=== PATIENT | male | born 1980 | race Caucasian/White ===

== ENCOUNTER 2024-10-13 19:20 | Emergency (ER) | payer BC, SELFPAY ==
[2024-10-13 19:25] VITALS: BP 164/93
--- NOTE | 2024-10-13 21:31 | ED.GENMED ---
History of Present Illness
General
Chief Complaint: DVT/Possible Blood Clot
Time Seen by Provider: 10/13/24 20:16
History of Present Illness
History of Present Illness:
TIME OF INITIAL ENCOUNTER: 8:30 PM
HPI: The patient presents due to right calf pain. He has been playing basketball a lot including 2 days ago and since then developed right calf pain. He was concerned because he has a history of DVT. When he had the DVT which was more extensive
to the right lower extremity, it was in the setting of a Achilles tendon rupture and immobilization. He was on Xarelto at that time. He never had a PE. He does not have any shortness of breath or chest pain.
EXAM:
GENERAL: Well appearing in no distress
HEENT: Moist oral mucosa
CARDIOVASCULAR: No murmurs, normal heart rate, regular rhythm, No chest wall tenderness
PULMONARY: No respiratory distress, breath sounds are clear and equal
ABDOMEN: Soft with no peritoneal signs, no tenderness
NEUROLOGIC: Excellent strength all extremities, no coordination deficits
PSYCHIATRIC: Appropriate mental status, normal insight and judgement
EXTREMITIES: There is minimal edema to the right lower extremity distally, there is point tenderness to the posterolateral aspect of the right calf
SKIN: No rash, no lesions
NUMBER AND COMPLEXITY OF PROBLEMS ADDRESSED AT THE ENCOUNTER
� Chronic conditions affecting care: Has had DVT in the past, high blood pressure
� Acute Exacerbation and/or Progression of Chronic Illness: This is an acute problem
� Differential Diagnosis includes: Muscle strain, superficial venous thrombosis, thrombophlebitis, deep vein thrombosis, cellulitis not evidence on physical examination
AMOUNT AND/OR COMPLEXITY OF DATA TO BE REVIEWED AND ANALYZED
� I performed an independent evaluation of and my interpretation is:
EKG:
CT:
X-rays:
Laboratory Studies: Hemoglobin normal, renal function is normal
Other: Ultrasound imaging shows evidence of occlusive peroneal vein DVT
� Review of other/old records: I reviewed records, the patient had extensive occlusive thrombosis in the right lower extremity in 2018
� Clinical information was obtained by an independent historian: I spoke to at bedside
� Prescriptions/Medications Considered but not given:
� Further testing considered but not performed:
RISK OF COMPLICATIONS AND/OR MORBIDITY OR MORTALITY OF PATIENT MANAGEMENT
� Social determinants of health affecting care: Lives at home
� Discussion with other providers:
� Escalation of care including admission/observation vs risk of discharge considered: Patient has symptomatic occlusive peroneal vein DVT to the right lower extremity. Will resume anticoagulation. We also discussed risks of
bleeding while on anticoagulation�recommended to hold off on playing vigorous sports such as basketball at least over the next week and follow-up with hematology.
ANY OTHER UPDATES:
10:15 PM: I reassessed patient. The patient is very well-appearing with no shortness of breath. Recommend that he follows up with hematology as this is an unprovoked second DVT.
Past History
Past History
ED Past Medical History: HTN, Other (Hyperlipidemia) and Other (Gout, dvt)
Social History
Tobacco: Non-smoker
Personal:
Living: with family
Employment: Employed (Works from home)
Phy Exam
Physical Exam
Physical Exam:
See HPI
Course
Orders/Labs/Results
Orders:
Orders
10/13/24 19:29
Periph Venous Lwr Ext Rt US [US Periph Venous LOWER Ext RT] Urgent
Comment: hx dvt 6 years ago
Reason For Exam: right calf pain and swelling
10/13/24 21:33
CMP [Comprehensive Metabolic Panel] Urgent
Complete Blood Count/With Diff Urgent
10/13/24 21:35
Apixaban [Eliquis] 10 mg PO NOW STA
Abnormal Lab Results
10/13/24
21:33
RBC 4.43 L 10^6/uL
(4.70-6.10)
MCH 31.8 H pg
(27.0-31.0)
Abs Immat Gran (auto) 0.1 H 10^3/uL
(0-0.05)
Absolute Monos (auto) 0.8 H 10^3/uL
(0.1-0.6)
Immature Gran % 0.8 H %
(0-0.5)
BUN 22 H mg/dl
(9-20)
Glucose 129 H mg/dl
(70-99)
ALT 53 H U/L
(0-50)
10/13/24 21:33
10/13/24 21:33
Vital Signs
Initial and Last Documented VS:
Initial Vital Signs
Temp Pulse Resp BP Pulse Ox
36.6 C 56 16 164/93 99
10/13/24 19:25 10/13/24 19:25 10/13/24 19:25 10/13/24 19:25 10/13/24 19:25
Last Documented Vital Signs
Temp Pulse Resp BP Pulse Ox
36.6 C 56 16 164/93 99
10/13/24 19:25 10/13/24 19:25 10/13/24 19:25 10/13/24 19:25 10/13/24 19:25
*Critical Care Note
Total Time (30-74mins, 75-104mins- exclusive of procedures): Not Applicable
ED Attending Note
-
Portions of this chart may have been created with voice recognition software.� Occasional wrong word or��sound alike� substitutions may have occurred due to the inherent limitations of voice recognition software.
Discharge Plan
Departure
Patient Disposition: Home (Routine Discharge)
Date of Disposition: 10/13/24
Time of Disposition: 22:14
Patient with high blood pressure during this ER visit?: Yes
Discharge Problem:
Acute deep vein thrombosis of peroneal vein
Instructions: Deep Vein Thrombosis (Blood Clots in the Legs) (DC)
Prescriptions:
New
Eliquis 5 mg tablet
5 mg PO BID Qty: 74 0RF
Rx Instructions:
FOR FIRST WEEK, TAKE TWO TABS TWICE DAILY
No Action
nebivolol 10 MG tablet
10 mg PO DAILY
fenofibrate 40 MG tablet
40 mg PO DAILY
Referrals:
Iveth Bowman MD [Active] - Follow up in 10 days
UNKNOWN - PT DOES,NOT KNOW [Family Provider] -
Activity Restrictions/Additional Instructions:
For the first week take two 5 mg Eliquis tablets twice daily, after the first week take one 5 mg Eliquis tablet twice daily. Basic blood work including hemoglobin and renal function are normal. I have given you the contact information for local
clinical quality rn to follow-up with.
Interventions
Interventions:
*Risk Screen - Suicide Last Done: 10/13/24 21:39
*General Assessment Last Done: 10/13/24 19:25
*Neglect/Abuse Screening Last Done: 10/13/24 21:39
ED- Fall Risk Assessment Last Done: 10/13/24 21:39
*ED COVID-19 Vaccine History Last Done: 10/13/24 19:25
ED- Pulmonary Assessment Last Done: 10/13/24 21:39
Discharge Date and Time
Print Language: THAI
[2024-10-13 21:33] VITALS: BMI 37.7
[2024-10-13 21:46] LABS: % Basophils 0.6 % (0-2); % Eosinophils 3.6 % (0-6); % Immature Granulocytes 0.8 % (0-0.5); % Monocytes 8.7 % (1.7-9.3); % Neutrophils 55.3 % (42.2-75.2); Absolute Basophils 0.1 10^3/uL (0-0.2); Absolute Eosinophils 0.3 10^3/uL (0-0.7); Absolute Immature Granulocytes 0.1 10^3/uL (0-0.05); Absolute Lymphocytes 2.8 10^3/uL (1.2-3.4); Absolute Monocytes 0.8 10^3/uL (0.1-0.6); Absolute Neutrophils 4.9 10^3/uL (1.4-6.5); Hematocrit 39.8 % (39.0-52.0); Hemoglobin 14.1 g/dL (13.0-18.0); Mean Corp Hgb Conc. 35.4 g/dL (33.0-37.0); Mean Corpuscular Hgb 31.8 pg (27.0-31.0); Mean Corpuscular Volume 89.8 fL (80.0-94.0); Nucleated Red Blood Cells % 0 % (-); Platelet Count 246 10^3/uL (130-400); Red Blood Cell Count 4.43 10^6/uL (4.70-6.10); Red Cell Dist. Width 12.4 % (11.5-14.5); White Blood Cell Count 8.9 10^3/uL (4.8-10.8)
[2024-10-13] MEDS: ELIQUIS 10 MG PO (21:47)
[2024-10-13 22:04] LABS: ALT (SGPT) 53 U/L (0-50); AST (SGOT) 44 U/L (17-59); Albumin 4.3 g/dl (3.5-5.0); Alkaline Phosphatase 58 U/L (38-126); Blood Urea Nitrogen 22 mg/dl (9-20); Calcium 9.5 mg/dl (8.4-10.2); Carbon Dioxide 24 mmol/L (22-30); Chloride 106 mmol/L (98-107); Estimated Creatinine Clearance 115 ml/min; Glucose 129 mg/dl (70-99); Potassium 4.4 mmol/L (3.5-5.1); Sodium 139 mmol/L (135-145); Total Bilirubin 0.3 mg/dl (0.2-1.3); eGFR > 60.00
--- NOTE | 2024-10-13 22:47 | EDRN ---
Dr. Duff in to go over results and plan with patient as well as myself with the discharge instructions, patient has no questions and discharged to go home.
== END 2024-10-13 22:49 | disposition home or self-care (01) ==
LOC: EMR 19:20
PROVIDERS: EMERGENCY PHYSICIAN Emergency Medicine
DX: M79.661 Pain in right lower leg (principal); R60.0 Localized edema; E78.49 Other hyperlipidemia; I10 Essential (primary) hypertension; Z79.01 Long term (current) use of anticoagulants; Z86.718 Personal history of other venous thrombosis and embolism
CPT/HCPCS: 99284; 80053; 85025; 93971

== ENCOUNTER 2024-11-02 08:41 | Emergency (ER) | payer BC, SELFPAY ==
[2024-11-02 09:07] VITALS: BP 146/89
[2024-11-02 10:32] VITALS: BP 144/78
--- NOTE | 2024-11-02 16:47 | ED.GENMED ---
History of Present Illness
General
Chief Complaint: Head Injury
Source: patient
Exam Limitations: none
Time Seen by Provider: 11/02/24 10:03
Nursing documentation reviewed up to this point in time: agreed with
History of Present Illness
History of Present Illness:
43 yo male on Eliquis for DVT, hx HTN was playing basketball 2 nights ago, was hit in forehead hard by a thrown basketball. No LOC, has had a mild frontal headache. Denies vision changes, denies weakness, numbness or dizziness.
Past History
Past History
ED Past Medical History: HTN, Other (Hyperlipidemia) and Other (Gout, dvt on Eliquis)
ED Past Surgical History: None
Social History
Tobacco: Smoker
Alcohol: None
Personal:
Living: with family
Employment: Employed (Works from home)
Review of Systems
Review of Systems
Allergies reviewed?: Yes
All Other Systems: ROS reviewed and negative except as documented in HPI and ROS
Constitutional: Denies fatigue
ABD/GI: Denies nausea or vomiting
Musculoskeletal: Denies neck pain
Skin: Reports no symptoms
Neurological: Reports headache (mild); Denies dizzy, weakness or numbness
Phy Exam
Physical Exam
Physical Exam:
GENERAL: No acute distress. A&Ox3.
CONSTITUTIONAL: Afebrile.
EYES: clear, conjunctivae normal
ENMT: moist mucus membranes
RESPIRATORY: Regular respirations, nonlabored, lungs clear.
CARDIOVASCULAR: Regular rate and rhythm, no murmurs, no rubs.
GI: Soft, nontender
MUSCULOSKELETAL: Moves with ease. Well perfused.
SKIN: Warm, dry, pink
PSYCH: Normal mood and affect. Well kept, interactive and appropriate
NEUROLOGIC: Awake, alert and oriented. No focal neurological deficits. Ambulates with steady gait.
Course
Orders/Labs/Results
Orders:
Orders
11/02/24 09:[address] [CT Head W/o Iv Contrast] Urgent
Comment:
Reason For Exam: head injury on eliquis
Vital Signs
Initial and Last Documented VS:
Initial Vital Signs
Temp Pulse Resp BP Pulse Ox
98 F 59 16 146/89 99
11/02/24 09:07 11/02/24 09:07 11/02/24 09:07 11/02/24 09:07 11/02/24 09:07
Last Documented Vital Signs
Temp Pulse Resp BP Pulse Ox
98 F 61 16 144/78 98
11/02/24 09:07 11/02/24 10:32 11/02/24 10:32 11/02/24 10:32 11/02/24 10:32
MDM/Problems Addressed
Differential Diagnosis Includes:
concussion, brain bleed
MDM/Problems Addressed:
43 yo male on Eliis for DVT, hx HTN was playing basketball 2 nights ago, was hit in forehead hard by a thrown basketball. No LOC, has had a mild frontal headache. Denies vision changes, denies weakness, numbness or dizziness.
No sign of concussion
Head ct normal
Pt reassured
*Critical Care Note
Total Time (30-74mins, 75-104mins- exclusive of procedures): Not Applicable
ED Attending Note
-
Portions of this chart may have been created with voice recognition software.� Occasional wrong word or��sound alike� substitutions may have occurred due to the inherent limitations of voice recognition software.
Discharge Plan
Departure
Patient Disposition: Home (Routine Discharge)
Date of Disposition: 11/02/24
Time of Disposition: 10:26
Patient with high blood pressure during this ER visit?: No
Condition: Good
Discharge Problem:
Minor closed head injury
Instructions: Minor Head Injury (DC)
Prescriptions:
No Action
nebivolol 10 MG tablet
10 mg PO DAILY
fenofibrate 40 MG tablet
40 mg PO DAILY
Eliquis 5 mg tablet
5 mg PO BID Qty: 74 0RF
Rx Instructions:
FOR FIRST WEEK, TAKE TWO TABS TWICE DAILY
Referrals:
UNKNOWN - PT DOES,NOT KNOW [Family Provider] -
Activity Restrictions/Additional Instructions:
As we discussed, your head CT is normal.
Interventions
Interventions:
*Risk Screen - Suicide Last Done: 11/02/24 09:08
*General Assessment Last Done: 11/02/24 09:58
*Neglect/Abuse Screening Last Done: 11/02/24 09:08
ED- Fall Risk Assessment Last Done: 11/02/24 10:32
*ED COVID-19 Vaccine History Last Done: 11/02/24 09:58
*Nursing Disposition Last Done: 11/02/24 10:32
ED- Neurological Assessment Last Done: 11/02/24 09:59
ED-Skin Assessment Last Done: 11/02/24 09:59
Discharge Date and Time
Discharge Date/Time: 11/02/24 10:33
Print Language: PERSIAN
== END 2024-11-02 10:33 | disposition home or self-care (01) ==
LOC: EMR 08:41
PROVIDERS: EMERGENCY PHYSICIAN Emergency Medicine
DX: S09.90XA Unspecified injury of head, initial encounter (principal); W21.05XA Struck by basketball, initial encounter; Z86.718 Personal history of other venous thrombosis and embolism; Z79.01 Long term (current) use of anticoagulants; I10 Essential (primary) hypertension; E78.5 Hyperlipidemia, unspecified; F17.200 Nicotine dependence, unspecified, uncomplicated
CPT/HCPCS: 99284; 70450

== ENCOUNTER → 2025-08-27 16:48 | Outpatient (REF) | payer BC, SELFPAY | LOC: RAD 16:48 | PROVIDERS: ATTENDING PHYSICIAN Internal Medicine Hematology & Oncology | DX: I82.491 Acute embolism and thrombosis of other specified deep vein of right lower extremity (principal) | CPT/HCPCS: 93970 ==